=== PATIENT | female | born 1935 | race Hispanic/Latino ===

== ENCOUNTER 2017-07-29 21:19 | Inpatient (IN) | payer MEDICARE ==
[2017-07-30 00:30] VITALS: BMI 24.3
[2017-07-30] MEDS ORDERED: HYDROcodone/Acetaminophen 5/325 mg Tablet PO PRN ×2 (00:33)
[2017-07-30] MEDS ORDERED: Ondansetron ODT 4 MG TAB SL PRN (00:33)
[2017-07-30] MEDS ORDERED: Ondansetron HCl/PF 4 MG/2 ML Vial IVP PRN (00:33)
[2017-07-30] MEDS ORDERED: Acetaminophen 325 MG TAB PO PRN (00:33)
[2017-07-30] MEDS ORDERED: Dextrose 5% in Water 1,000 ML IV PRN (02:32)
[2017-07-30] MEDS ORDERED: Dextrose 50% Abboject 50 ML SYRINGE SLOW IVP PRN (02:32)
[2017-07-30] MEDS ORDERED: HumaLOG 300 UNITS/3 ML VIAL SC PRN (02:32)
[2017-07-30] MEDS: Sodium Chloride 0.9% 1,000 ML IV SCH ×3 (03:03→23:58)
--- NOTE | 2017-07-30 04:15 | HP ---
PRIMARY CARE PHYSICIAN: Dr. Galvez WAGE AND SALARY ADMINISTRATOR: Dr. Pedro CHIEF COMPLAINT: Bloody bowel movement. HISTORY OF PRESENT ILLNESS: A 81-year-old female with a history of hypertension , who presented with a chief complaint of blood in her bowel movements x3 earlier today at home and "several times" in the emergency department. Patient states that this is acute onset, never had any prior similar episodes. Denies any prior history of routine colonoscopy or stool evaluation by alternative means. No known history of colonic cancer in her family. Denies any personal history of hemorrhoids. REVIEW OF SYSTEMS: As per HPI. Constitutional: No recent weight changes. Denies any fevers or chills. HEENT: Denies any recent issues with lightheadedness, dizziness, changes in vision, new headaches. Respiratory: No new shortness of breath, no new cough. No recent upper respiratory infection. No sinus congestion, no postnasal drip. Cardiovascular: No chest pain, no chest pressure, no shortness of breath with exertion. Gastrointestinal: Bowel movement issues as above. No nausea, vomiting, or abdominal pain. Musculoskeletal: No new myalgias or arthralgias. PAST MEDICAL HISTORY: As per above. 1. Hypertension. 2. Diabetes. 3. Denies any prior intra-abdominal surgeries. HOME MEDICATIONS: As per EMR includes the following, montelukast 10 mg p.o. daily, lisinopril 10 mg p.o. b.i.d., fluticasone and salmeterol one inhalation b.i.d. Patient denies any recent changes to this regimen in the last 2 weeks. She states that she also takes vitamin B12, vitamin D3, and vitamin E over-the- counter as well. Denies any other herbal or supplemental use. ALLERGIES: No known drug allergies. FAMILY HISTORY: The patient denies any family history of gastrointestinal cancer. She states that her sister and one of her brothers has had recent GI issues and she thinks that her sister may have had a GI bleed recently as well. SOCIAL HISTORY: The patient is accompanied here today by her granddaughter who is with her in the room. The patient indicates that she wishes her granddaughter to be the medical decision maker if she is unable to make her own medical decisions. We discussed advanced care planning and code status. The patient states that all of her information is on file with her primary care provider to discuss the topic any further at this point in time. She is therefore presumed to be FULL CODE at this point in time. PHYSICAL EXAMINATION: VITAL SIGNS: Temperature 98.4, pulse of 89, blood pressure 131/70, respirations 16, satting 96% on room air. GENERAL: The patient is awake, alert, conversant, in no acute distress, oriented x3, appears to be a reasonable historian, provides history as above. HEENT: Normocephalic, atraumatic. Equal ocular motions are intact. Moist mucous membranes. No posterior oropharyngeal erythema or exudate. CARDIOVASCULAR: S1, S2. Pulses 2+ bilateral upper extremities, no pitting pedal edema. No murmurs, rubs, or gallops. RESPIRATORY: Reasonable air movement. No conversational dyspnea. No wheezes, rales, or rhonchi, otherwise clear to auscultation. ABDOMEN: Positive bowel sounds, soft, nontender to palpation. MUSCULOSKELETAL: Moving all 4 extremities, able to self-repositioning the bed without difficulty or assistance. LABORATORY DATA AND IMAGING: WBC 7.7, hemoglobin 11.4, hematocrit 35.8, platelets 298. PT 13.1, INR 1.0. Sodium 140, potassium 4.2, chloride 104, bicarbonate is 426, BUN is 18, creatinine 0.81, glucose 178, calcium 10.1, total bilirubin 0.2, AST 13, ALT 12, alkaline phosphatase 173, total serum protein 6.9, albumin 3.8, lipase 40. UA is significant for small ketones, moderate leukoesterase, and 11-20 wbc's. Stool occult blood is positive for fecal occult blood. ASSESSMENT AND PLAN: A 81-year-old female who presents with a chief complaint of blood in her stools. 1. Bloody stools concerning for possible lower gastrointestinal bleed. Discussed with the patient and her family at bedside. The patient will be kept n.p.o., IV fluids started. Serial H&Hs obtained. The patient currently states that she would wish to receive a blood transfusion if she should need blood transfusion. A goal of transfusion would be to maintain hemoglobin of greater than 7. Hold the patient's home aspirin. GI consultation has been obtained as well from the emergency department. 2. Home history of hypertension. Continue to closely monitor. 3. Diet: N.p.o. 4. Activity: Out of bed as tolerated. 5. DVT prophylaxis with sequentials. Discussed with the patient admission on an observation basis. Patient is presumed to be FULL CODE as per conversation noted above. Thank you for asking me care for the patient. Questions or concerns, contact me at [facility]. RENETTA
[2017-07-30 04:38] LABS: Anion Gap 5 mmol/L (10-20); BUN (Urea Nitrogen) 22 mg/dL (9.8-20.1); Calc. Creatinine Clearance 67 mL/min (70-130); Calcium 9.3 mg/dL (7.8-10.44); Carbon Dioxide 28 mmol/L (23-31); Chloride 107 mmol/L (98-107); Estimated GFR-MDRD 82; Glucose 133 mg/dL (83-110); Potassium 4.4 mmol/L (3.5-5.1); Sodium 136 mmol/L (136-145)
[2017-07-30 04:49] LABS: #Basophils 0.1 thou/uL (0.0-0.2); #Eosinphils 0.8 thou/uL (0.0-0.7); #Lymphocytes 1.6 thou/uL (1.20-3.40); #Monocytes 0.6 thou/uL (0.11-0.59); #Neutrophils 4.7 thou/uL (1.40-6.50); %Basophils 0.7 % (0.0-1.0); %Eosinophils 9.8 % (0.0-10.0); %Lymphocytes 20.3 % (21.0-51.0); %Monocytes 8.1 % (0.0-10.0); Hemoglobin 8.8 g/dL (12.0-16.0); Mean Corpuscular HGB CONC 33.4 g/dL (32.0-36.0); Mean Corpuscular Hemoglobin 29.9 pg (27.0-31.0); Mean Corpuscular Volume 89.7 fl (81.0-99.0); Platelet Count 268 thou/uL (130-400); RBC Distribution Width 12.3 % (11.5-14.5); Red Blood Cell (RBC) Count 2.94 mill/uL (4.20-5.40); White Blood Cell (WBC) Count 7.7 thou/uL (4.8-10.8)
[2017-07-30] MEDS: Mometasone/Formoterol 120 PUFF INHALER INH SCH ×2 (07:21→18:20)
[2017-07-30 08:48] LABS: #Eosinphils 0.3 thou/uL (0.0-0.7); #Lymphocytes 1.1 thou/uL (1.20-3.40); #Monocytes 0.4 thou/uL (0.11-0.59); #Neutrophils 5.3 thou/uL (1.40-6.50); %Basophils 0.5 % (0.0-1.0); %Lymphocytes 15.8 % (21.0-51.0); %Monocytes 5.3 % (0.0-10.0); %Neutrophils 74.3 % (42.0-75.0); Hemoglobin 8.5 g/dL (12.0-16.0); Mean Corpuscular HGB CONC 33.5 g/dL (32.0-36.0); Mean Corpuscular Volume 89.5 fl (81.0-99.0); Mean Platelet Volume 6.8 fL (7.4-10.4); Platelet Count 271 thou/uL (130-400); RBC Distribution Width 12.2 % (11.5-14.5); Red Blood Cell (RBC) Count 2.84 mill/uL (4.20-5.40); White Blood Cell (WBC) Count 7.1 thou/uL (4.8-10.8)
[2017-07-30] MEDS ORDERED: Non-Formulary Item 1 EACH (Fluticasone/Salmeterol [Advair Diskus 250/50] 1 INH) IH SCH (09:00)
[2017-07-30] MEDS: Pantoprazole 40 MG VIAL IVP SCH ×2 (09:00→21:51)
[2017-07-30] MEDS: Lisinopril 10 MG TAB PO SCH ×2 (09:11→21:51)
--- NOTE | 2017-07-30 13:34 | PDOC.EVN ---
Event Note - Event Note Event Note: Chart reviewed, pt seen. Family updated.
[2017-07-30 15:02] LABS: #Eosinphils 0.4 thou/uL (0.0-0.7); #Lymphocytes 1.6 thou/uL (1.20-3.40); #Monocytes 0.4 thou/uL (0.11-0.59); #Neutrophils 4.5 thou/uL (1.40-6.50); %Basophils 0.7 % (0.0-1.0); %Eosinophils 5.7 % (0.0-10.0); %Lymphocytes 23.3 % (21.0-51.0); %Monocytes 5.7 % (0.0-10.0); %Neutrophils 64.7 % (42.0-75.0); Hemoglobin 8.1 g/dL (12.0-16.0); Mean Corpuscular HGB CONC 32.8 g/dL (32.0-36.0); Mean Corpuscular Hemoglobin 29.5 pg (27.0-31.0); Mean Platelet Volume 6.8 fL (7.4-10.4); Platelet Count 243 thou/uL (130-400); RBC Distribution Width 12.3 % (11.5-14.5); Red Blood Cell (RBC) Count 2.76 mill/uL (4.20-5.40)
[2017-07-30] MEDS ORDERED: GoLYTELY 4,000 ml Bottle PO SCH (18:00)
--- NOTE | 2017-07-30 19:16 | CON ---
GASTROENTEROLOGY CONSULTATION NOTE DATE OF CONSULTATION: 07/30/2017 CHIEF COMPLAINT: Blood in the stool. HISTORY OF PRESENT ILLNESS: Ms. Encinas is a 81-year-old woman who developed bright red rectal bl eeding last night around 5:00 p.m. She had around 8 bloody stools between 5:00 p.m. and 4:00 a.m. S thaddeus then, she has had no further output. She has no abdominal pain associated with this. No nausea or vomiting, no diarrhea or constipation preceding this. PAST MEDICAL HISTORY: Hypertension and diabetes. PAST SURGICAL HISTORY: Negative. FAMILY HISTORY: Negative for GI malignancy. Her sister had a diverticular bleed. SOCIAL HISTORY: No alcohol, tobacco or drugs. MEDICATIONS PRIOR TO ADMISSION: Lisinopril, Advair and she takes aspirin 81 mg daily. Currently, in the hospital, she is on pantoprazole IV, montelukast, Dulera inhaler and insulin sliding scale. REVIEW OF SYSTEMS: Negative x10 systems reviewed except as stated in the history of present illness. PHYSICAL EXAMINATION: VITAL SIGNS: Temperature 98.7, blood pressure 99/59 and pulse 98. GENERAL: She is in no acute distress. She is alert and oriented x3. HEENT: Eyes have no scleral icterus. Oropharynx is clear, without lesions. NECK: No cervical or supraclavicular lymphadenopathy. LUNGS: Clear to auscultation bilaterally. HEART: Regular rate and rhythm. ABDOMEN: Soft, nontender and nondistended. Bowel sounds are present. EXTREMITIES: No lower extremity edema. LABORATORY DATA: White blood cell count 7.1 and hemoglobin is 8.5. Baseline hemoglobin back in [facility] was 12.2 and hemoglobin on presentation last night was 11.4. INR 1.0. Creatinine 0.69. On pre sentation, her bilirubin was 0.2, AST 13, ALT 12, alkaline phosphatase 173 and albumin 3.8. IMPRESSION: 1. Acute lower gastrointestinal bleed. Her last stool output was 4:00 this morning. She has no abd ominal pain with this. This is most likely a diverticular bleed. She has never had a prior colonosc opy. 2. Anemia of acute blood loss. RECOMMENDATIONS: Colonoscopy tomorrow.
[2017-07-30 20:41] LABS: #Basophils 0.1 thou/uL (0.0-0.2); #Eosinphils 0.6 thou/uL (0.0-0.7); #Lymphocytes 2.3 thou/uL (1.20-3.40); #Monocytes 0.6 thou/uL (0.11-0.59); #Neutrophils 4.9 thou/uL (1.40-6.50); %Basophils 0.6 % (0.0-1.0); %Eosinophils 7.6 % (0.0-10.0); %Lymphocytes 27.2 % (21.0-51.0); %Monocytes 7.4 % (0.0-10.0); %Neutrophils 57.3 % (42.0-75.0); Hemoglobin 9.2 g/dL (12.0-16.0); Mean Corpuscular HGB CONC 33.4 g/dL (32.0-36.0); Mean Corpuscular Hemoglobin 30.1 pg (27.0-31.0); Mean Platelet Volume 6.9 fL (7.4-10.4); Platelet Count 285 thou/uL (130-400); RBC Distribution Width 12.3 % (11.5-14.5); Red Blood Cell (RBC) Count 3.07 mill/uL (4.20-5.40); White Blood Cell (WBC) Count 8.6 thou/uL (4.8-10.8)
[2017-07-30] MEDS ORDERED: Ondansetron HCl/PF 4 MG/2 ML Vial SLOW IVP PRN (22:22)
[2017-07-31 02:45] LABS: #Eosinphils 0.4 thou/uL (0.0-0.7); #Lymphocytes 1.7 thou/uL (1.20-3.40); #Monocytes 0.4 thou/uL (0.11-0.59); #Neutrophils 4.5 thou/uL (1.40-6.50); %Basophils 0.6 % (0.0-1.0); %Eosinophils 5.4 % (0.0-10.0); %Lymphocytes 23.7 % (21.0-51.0); %Neutrophils 64.3 % (42.0-75.0); Hemoglobin 7.2 g/dL (12.0-16.0); Mean Corpuscular HGB CONC 33.3 g/dL (32.0-36.0); Mean Corpuscular Hemoglobin 29.7 pg (27.0-31.0); Mean Corpuscular Volume 89.3 fl (81.0-99.0); Mean Platelet Volume 6.6 fL (7.4-10.4); Platelet Count 217 thou/uL (130-400); RBC Distribution Width 12.2 % (11.5-14.5); Red Blood Cell (RBC) Count 2.41 mill/uL (4.20-5.40)
[2017-07-31 03:30] LABS: Anion Gap 7 mmol/L (10-20); BUN (Urea Nitrogen) 17 mg/dL (9.8-20.1); Calc. Creatinine Clearance 83 mL/min (70-130); Calcium 8.7 mg/dL (7.8-10.44); Carbon Dioxide 27 mmol/L (23-31); Chloride 111 mmol/L (98-107); Estimated GFR-MDRD Greater than 90; Glucose 112 mg/dL (83-110); Potassium 3.9 mmol/L (3.5-5.1); Sodium 141 mmol/L (136-145)
[2017-07-31] MEDS: Mometasone/Formoterol 120 PUFF INHALER INH SCH ×2 (07:38→17:54)
[2017-07-31] MEDS ORDERED: Ondansetron HCl/PF 4 MG/2 ML Vial IVP PRN (09:34)
[2017-07-31] MEDS ORDERED: Promethazine HCl 25 MG/ML VIAL IM PRN (09:34)
[2017-07-31] MEDS ORDERED: Promethazine HCl 25 MG/ML VIAL SLOW IVP PRN (09:34)
[2017-07-31] MEDS: Lisinopril 10 MG TAB PO SCH ×2 (10:34→20:10)
[2017-07-31] MEDS: Montelukast Sodium 10 mg Tablet PO SCH (10:35)
[2017-07-31] MEDS: Pantoprazole 40 MG VIAL IVP SCH ×2 (10:36→20:10)
[2017-07-31 10:42] LABS: #Eosinphils 0.5 thou/uL (0.0-0.7); #Lymphocytes 1.3 thou/uL (1.20-3.40); #Monocytes 0.5 thou/uL (0.11-0.59); #Neutrophils 3.9 thou/uL (1.40-6.50); %Basophils 0.5 % (0.0-1.0); %Lymphocytes 21.2 % (21.0-51.0); %Monocytes 8.4 % (0.0-10.0); %Neutrophils 61.9 % (42.0-75.0); Hemoglobin 7.9 g/dL (12.0-16.0); Mean Corpuscular HGB CONC 32.4 g/dL (32.0-36.0); Mean Corpuscular Hemoglobin 29.3 pg (27.0-31.0); Mean Corpuscular Volume 90.4 fl (81.0-99.0); Platelet Count 242 thou/uL (130-400); RBC Distribution Width 12.2 % (11.5-14.5); White Blood Cell (WBC) Count 6.3 thou/uL (4.8-10.8)
--- NOTE | 2017-07-31 11:44 | OP ---
DATE OF PROCEDURE: 07/31/2017 PROCEDURE: Colonoscopy with snare polypectomy. PREOPERATIVE DIAGNOSIS: Lower gastrointestinal bleed. OPERATIVE NOTE: Informed consent was obtained from the patient. She was sedated with total intraven ous anesthesia. Rectal exam was performed that was normal. The colonoscope was advanced to the term inal ileum without difficulty. The preparation quality was good. There was single aphthous ulcerati on in the terminal ileum which is unlikely of clinical significance. The ileocecal valve and appendi ceal orifice were clearly identified. There is moderately severe diverticulosis of the transverse, d escending and sigmoid colon. There are no signs of old blood or fresh bleeding in the colon today. Four small polyps measuring 4-5 mm were removed from the rectum by cold snare polypectomy. Retroflex ed views in the rectum revealed moderate internal hemorrhoids. IMPRESSION: 1. Single aphthous ulceration of the terminal ileum, unlikely of clinical significance. 2. Moderately severe diverticulosis of the transverse, descending, and sigmoid colon. 3. Four polyps measuring 4-5 mm removed from the rectum. 4. Moderate internal hemorrhoids. 5. There are no signs of recent bleeding currently. The source of her bleed was likely diverticular . RECOMMENDATIONS: 1. Await histopathology. 2. Repeat colonoscopy based on pathology results for surveillance. If 3 or more polyps are adenomas , then repeat colonoscopy in 3 years. If one or two of the polyps are adenomas, then repeat in 5 yea rs. If all four polyps are hyperplastic, then repeat colonoscopy in 10 years. 3. Advance diet. 4. Transfuse today 1 unit red blood cell.
--- NOTE | 2017-07-31 13:21 | PDOC.PN ---
- Subjective Encounter Start Date: 07/31/17 Encounter Start Time: 10:00 Pt seen for followup re: GI bleed. Denies chest pain or shortness of breath. Denies fevers or chills. - Objective Resuscitation Status: Resuscitation Status FULL:Full Resuscitation MAR Reviewed: Yes Vital Signs & Weight: Vital Signs (12 hours) Temp Pulse Resp BP BP Pulse Ox 07/31/17 11:47 97.7 F 80 16 111/50 L 96 07/31/17 10:34 131/72 07/31/17 10:10 98.4 F 91 20 95 07/31/17 04:00 98.4 F 91 20 108/55 L 93 L Weight Weight 141 lb 8 oz I&O: 07/30/17 07/31/17 08/01/17 06:59 06:59 06:59 Intake Total 350 6361 0 Balance 350 6361 0 Result Diagrams: 07/31/17 10:29 07/31/17 02:37 Additional Labs: Accuchecks 07/31/17 07/31/17 07/30/17 11:52 04:44 20:16 POC Glucose 85 112 H 104 07/30/17 16:19 POC Glucose 98 Phys Exam - Physical Examination Constitutional: NAD HEENT: PERRLA, moist MMs, sclera anicteric, oral pharynx no lesions Neck: no nodes, no JVD, supple, full ROM Respiratory: no wheezing, no rales, no rhonchi, clear to auscultation bilateral Cardiovascular: RRR, no rub Gastrointestinal: soft, non-tender, no distention, positive bowel sounds Neurological: moves all 4 limbs Psychiatric: normal affect, A&O x 3 Dx/Plan (1) GI bleed Code(s): K92.2 - GASTROINTESTINAL HEMORRHAGE, UNSPECIFIED Status: Acute Comment: Likely diverticular bleed. Appreciate GI service input. (2) Anemia associated with acute blood loss Code(s): D62 - ACUTE POSTHEMORRHAGIC ANEMIA Status: Acute Comment: pt to be transfused with pRBC. (3) Diverticular disease Code(s): K57.90 - DVRTCLOS OF INTEST, PART UNSP, W/O PERF OR ABSCESS W/O BLEED Status: Acute Comment: s/p scope, no active bleed at this time. (4) Colon polyps Code(s): K63.5 - POLYP OF COLON Status: Acute Comment: s/p biopsy. (5) DM2 (diabetes mellitus, type 2) Status: Chronic Comment: Continue accuchecks, insulin sliding scale. (6) HTN (hypertension) Code(s): I10 - ESSENTIAL (PRIMARY) HYPERTENSION Status: Chronic Comment: Monitor vital signs, titrate antihypertensives as needed. - Plan * . Review of Systems - Review of Systems Constitutional: negative: fever, chills, sweats, weakness, malaise Respiratory: negative: Cough, Shortness of Breath, Hemoptysis, SOB with Excertion, Pleuritic Pain, Wheezing Cardiovascular: negative: chest pain, palpitations, orthopnea, paroxysmal nocturnal dyspnea, edema, light headedness Gastrointestinal: Hematochezia. negative: Nausea, Vomiting, Abdominal Pain, Diarrhea, Constipation, Melena Genitourinary: negative: Dysuria, Frequency, Incontinence, Hematuria, Retention Skin: negative: Rash, Lesions, Kris, Bruising - Medications/Allergies Allergies/Adverse Reactions: Allergies Allergy/AdvReac Type Severity Reaction Status Date / Time No Known Drug Allergies Allergy Verified 07/30/17 00:48 Medications: Current Medications Dextrose/Water (Dextrose 50%) 25 gm SLOW IVP PRN PRN PRN Reason: Hypoglycemia Glucagon (Glucagon) 1 mg IM PRN PRN PRN Reason: Hypoglycemia Dextrose/Water (D5w) 1,000 mls @ 0 mls/hr IV .Q0M PRN; As Directed PRN Reason: Hypoglycemia Sodium Chloride (Normal Saline 0.9%) 1,000 mls @ 100 mls/hr IV .Q10H [facility] Last Admin: 07/30/17 23:58 Dose: 1,000 mls Insulin Human Lispro (Humalog) 0 units SC .MILD SLIDING SCALE PRN PRN Reason: Mild Correctional Scale Lisinopril (Zestril) 10 mg PO BID [facility] Last Admin: 07/31/17 10:34 Dose: 10 mg Mometasone Furoate/Formoterol Fumar (Dulera 200 Mcg/5 Mcg Inhaler) 2 puff INH BID-RT [facility] Last Admin: 07/31/17 07:38 Dose: Not Given Montelukast Sodium (Singulair) 10 mg PO DAILY [facility] Last Admin: 07/31/17 10:35 Dose: 10 mg Ondansetron HCl (Zofran) 4 mg SLOW IVP Q6H PRN PRN Reason: Nausea/Vomiting Pantoprazole Sodium (Protonix) 40 mg IVP BID [facility] Last Admin: 07/31/17 10:36 Dose: 40 mg Sodium Chloride (Flush - Normal Saline) 10 ml IVF Q12HR [facility] Last Admin: 07/31/17 10:29 Dose: Not Given Sodium Chloride (Flush - Normal Saline) 10 ml IVF PRN PRN PRN Reason: Saline Flush
[2017-07-31 15:11] LABS: #Basophils 0.1 thou/uL (0.0-0.2); #Eosinphils 0.5 thou/uL (0.0-0.7); #Lymphocytes 1.4 thou/uL (1.20-3.40); #Monocytes 0.5 thou/uL (0.11-0.59); #Neutrophils 4.3 thou/uL (1.40-6.50); %Lymphocytes 20.5 % (21.0-51.0); %Monocytes 7.3 % (0.0-10.0); %Neutrophils 63.2 % (42.0-75.0); Hemoglobin 9.2 g/dL (12.0-16.0); Mean Corpuscular HGB CONC 33.1 g/dL (32.0-36.0); Mean Corpuscular Hemoglobin 29.9 pg (27.0-31.0); Mean Corpuscular Volume 90.3 fl (81.0-99.0); Mean Platelet Volume 6.6 fL (7.4-10.4); Platelet Count 251 thou/uL (130-400); RBC Distribution Width 12.5 % (11.5-14.5); Red Blood Cell (RBC) Count 3.08 mill/uL (4.20-5.40); White Blood Cell (WBC) Count 6.8 thou/uL (4.8-10.8)
[2017-07-31] MEDS: Sodium Chloride 0.9% 1,000 ML IV SCH (16:13)
[2017-07-31] MEDS ORDERED: PROPOFOL 200 MG/20 ML VIAL ONE (16:42)
[2017-07-31 21:20] LABS: #Eosinphils 0.6 thou/uL (0.0-0.7); #Lymphocytes 1.4 thou/uL (1.20-3.40); #Monocytes 0.5 thou/uL (0.11-0.59); #Neutrophils 4.5 thou/uL (1.40-6.50); %Basophils 0.7 % (0.0-1.0); %Eosinophils 8.4 % (0.0-10.0); %Lymphocytes 20.1 % (21.0-51.0); %Monocytes 7.4 % (0.0-10.0); %Neutrophils 63.4 % (42.0-75.0); Hemoglobin 8.8 g/dL (12.0-16.0); Mean Corpuscular HGB CONC 33.6 g/dL (32.0-36.0); Mean Corpuscular Volume 89.4 fl (81.0-99.0); Mean Platelet Volume 6.6 fL (7.4-10.4); Platelet Count 220 thou/uL (130-400); RBC Distribution Width 12.1 % (11.5-14.5); Red Blood Cell (RBC) Count 2.93 mill/uL (4.20-5.40); White Blood Cell (WBC) Count 7.2 thou/uL (4.8-10.8)
[2017-08-01] MEDS: Sodium Chloride 0.9% 1,000 ML IV SCH ×2 (02:17→12:56)
[2017-08-01 05:04] LABS: Anion Gap 6 mmol/L (10-20); BUN (Urea Nitrogen) 6 mg/dL (9.8-20.1); Calc. Creatinine Clearance 80 mL/min (70-130); Carbon Dioxide 30 mmol/L (23-31); Chloride 107 mmol/L (98-107); Estimated GFR-MDRD Greater than 90; Glucose 94 mg/dL (83-110); Potassium 3.6 mmol/L (3.5-5.1); Sodium 139 mmol/L (136-145)
[2017-08-01] MEDS: Mometasone/Formoterol 120 PUFF INHALER INH SCH ×2 (07:32→18:07)
[2017-08-01] MEDS: Montelukast Sodium 10 mg Tablet PO SCH (09:55)
[2017-08-01] MEDS: Lisinopril 10 MG TAB PO SCH (09:55)
[2017-08-01 16:09] LABS: Hemoglobin 8.6 g/dL (12.0-16.0)
[2017-08-01 16:58] VITALS: BP 133/72; TEMP 97.8
--- NOTE | 2017-08-02 01:28 | DIS ---
DATE OF ADMISSION: 07/29/2017 DATE OF DISCHARGE: 08/01/2017 PRIMARY CARE PHYSICIAN: Lalita Galvez M.D. DISCHARGE DIAGNOSES: 1. Gastrointestinal bleed. 2. Diverticulosis. 3. Rectal polyps. 4. Moderate internal hemorrhoids. CONSULTATIONS DURING THIS HOSPITALIZATION: Gastroenterology, Dr. Pedro. CONDITION OF PATIENT ON THE DAY OF DISCHARGE: Stable. I assessed Ms. Encinas on the day of discharge. She denies any chest pain or shortness of breath. She denies any fevers or chills. She denies any nausea or vomiting. She denies any abdominal pain . Vital signs are stable. S1 and S2 are heard, regular. Lungs are clear to auscultation bilaterall y. HOSPITAL COURSE: Ms. Encinas is a pleasant 81-year-old lady who was admitted to [facility] on 07/30/2017 for lower GI bleed. She underwent colonoscopy by Gastroenterology ser vice on 07/31/2017. She had single aphthous ulceration of the terminal ileum, unlikely of clinical s ignificance, moderately severe diverticulosis of the transverse, descending, and sigmoid colon, 4 carmen yps measuring 4-5 mm removed from rectum, moderate internal hemorrhoids and no signs of recent bleedi ng. The source of her bleed was likely diverticular. Histopathology is pending at the time of disch arge. Her bleed resolved. She also received 1 unit of packed RBC. She is being discharged home in a stable condition. She is advised to follow up with Gastroenterology Service in 1-2 weeks for patho logy result. On the day of discharge, she has hemoglobin of 8.6. She has a creatinine of 0.58 and n ormal electrolytes on the day of discharge, Many thanks for allowing me to participate in your patient's care. Please feel free to contact me wi th any questions or concerns. DISCHARGE MEDICATIONS: Aspirin 81 mg daily, she has been advised to discuss with her primary care ph ysician if she needs to be on aspirin. Gastroenterology service is okay with her being on aspirin, b ut cautioned that it increases the risk of bleeding. Her other medications include Singulair 10 mg d aily, lisinopril 10 mg 2 times a day and Advair. DISCHARGE DESTINATION: Home. TOTAL AMOUNT OF TIME SPENT COORDINATING THIS DISCHARGE: 32 minutes.
== END 2017-08-01 18:39 | disposition home or self-care (01) | DRG 378 ==
LOC: ERS 21:19 → T4-B 23:00
PROVIDERS: ADMIT Internal Medicine; ATTEND Internal Medicine
PROC: 0DBP8ZX Excision of Rectum, Via Natural or Artificial Opening Endoscopic, Diagnostic (ICD-10-PCS; principal; 2017-07-31)
PROC: 30233N1 Transfusion of Nonautologous Red Blood Cells into Peripheral Vein, Percutaneous Approach (ICD-10-PCS; 2017-07-31)
DX: K57.31 Diverticulosis of large intestine without perforation or abscess with bleeding (principal); K63.3 Ulcer of intestine; E11.9 Type 2 diabetes mellitus without complications; D62 Acute posthemorrhagic anemia; K62.1 Rectal polyp; K64.8 Other hemorrhoids; I10 Essential (primary) hypertension; Z79.82 Long term (current) use of aspirin; Z79.4 Long term (current) use of insulin; Z79.899 Other long term (current) drug therapy
CPT/HCPCS: 36415; 36416; 36430; 80048; 85014; 85018; 85025; 86850; 86900; 86901; 88305; 94760; A4216; C9113; J2704; P9016

== ENCOUNTER 2018-01-04 09:40 | Outpatient (CLI) | payer MEDICARE | END 2018-01-04 09:41 | disposition home or self-care (01) | LOC: BICMAMMO 09:40 | PROVIDERS: ATTEND Family Medicine | DX: N63.22 Unspecified lump in the left breast, upper inner quadrant (principal); R92.1 Mammographic calcification found on diagnostic imaging of breast | CPT/HCPCS: 76642; 77066; G0279 ==

== ENCOUNTER → 2018-01-15 | Day surgery (SDC) | payer MEDICARE | LOC: BICULT 12:45 | PROVIDERS: ATTEND Family Medicine | PROC: 0HBU3ZX Excision of Left Breast, Percutaneous Approach, Diagnostic (ICD-10-PCS; principal; 2018-01-15) | DX: D05.92 Unspecified type of carcinoma in situ of left breast (principal); N64.1 Fat necrosis of breast | CPT/HCPCS: 19083; 88305; 88341; 88342 ==

== ENCOUNTER 2018-01-19 14:21 | Outpatient (CLI) | payer MEDICARE ==
[2018-01-19 14:50] LABS: #Basophils 0.1 thou/uL (0.0-0.2); #Eosinphils 0.6 thou/uL (0.0-0.7); #Lymphocytes 1.3 thou/uL (1.20-3.40); #Monocytes 0.4 thou/uL (0.11-0.59); #Neutrophils 4.6 thou/uL (1.40-6.50); %Basophils 0.8 % (0.0-1.0); %Lymphocytes 18.4 % (21.0-51.0); %Monocytes 5.7 % (0.0-10.0); Hemoglobin 12.9 g/dL (12.0-16.0); Mean Corpuscular HGB CONC 31.6 g/dL (32.0-36.0); Mean Corpuscular Hemoglobin 28.9 pg (27.0-31.0); Mean Corpuscular Volume 91.3 fL (78.0-98.0); Mean Platelet Volume 7.3 fL (7.4-10.4); Platelet Count 287 thou/uL (130-400); RBC Distribution Width 12.2 % (11.5-14.5); Red Blood Cell (RBC) Count 4.46 mill/uL (4.20-5.40)
--- NOTE | 2018-01-19 14:57 | RAD ---
PA AND LATERAL CHEST RADIOGRAPH: Date: 01-19-18 History: Pre-operative evaluation. Comparison: 04-06-14 FINDINGS: Cardiac silhouette and pulmonary vasculature are within normal limits. Mild chronic lung changes are seen. Lungs are hyperexpanded. There is symmetric apical pleural and parenchymal scarring. No focal a reas of consolidation or pleural fluid is seen. There has been no interval change when compared to th e prior exam. IMPRESSION: No acute cardiopulmonary process. POS: H
[2018-01-19 15:09] LABS: Anion Gap 10 mmol/L (10-20); BUN (Urea Nitrogen) 20 mg/dL (9.8-20.1); Calc. Creatinine Clearance 0 mL/min (70-130); Calcium 10.5 mg/dL (7.8-10.44); Carbon Dioxide 28 mmol/L (23-31); Chloride 105 mmol/L (98-107); Estimated GFR-MDRD 70; Glucose 132 mg/dL (83-110); Potassium 3.9 mmol/L (3.5-5.1); Sodium 139 mmol/L (136-145)
--- NOTE | 2018-01-20 22:44 | EKG ---
Test Reason : Blood Pressure : / mmHG Vent. Rate : 094 BPM Atrial Rate : 094 BPM P-R Int : 184 ms QRS Dur : 066 ms QT Int : 326 ms P-R-T Axes : 068 038 068 degrees QTc Int : 407 ms Normal sinus rhythm Possible Left atrial enlargement Possible Anterior infarct , age undetermined Abnormal ECG No previous ECGs available Confirmed by DR. Fran MARROQUIN MD ([id number]) on 01/20/2018 10:44:14 PM Referred By: KATHRYN Confirmed By:DR. Fran MARROQUIN MD
== END 2018-01-19 14:22 | disposition home or self-care (01) ==
LOC: LABBT 14:21
PROVIDERS: ATTEND Specialist
DX: Z01.818 Encounter for other preprocedural examination (principal); D05.12 Intraductal carcinoma in situ of left breast
CPT/HCPCS: 71046; 80048; 85025; 93005; 93010

== ENCOUNTER 2018-01-25 07:00 | Day surgery (SDC) | payer MEDICARE ==
[2018-01-19 15:01] VITALS: BMI 24.7
[2018-01-25] MEDS ORDERED: CEFAZOLIN/Water 2 GM/20 ML SYRINGE ONE (12:20)
[2018-01-25] MEDS ORDERED: Ketorolac Tromethamine 30 MG/ML VIAL ONE (12:21)
[2018-01-25] MEDS ORDERED: Fentanyl 100 MCG/2 ML VIAL ONE (12:27)
[2018-01-25] MEDS ORDERED: Isosulfan Blue 50 MG/5 ML VIAL ONE (12:35)
[2018-01-25] MEDS ORDERED: Bupivacaine/Epinephrine 0.25% 30 ML VIAL ONE ×2 (12:35→14:01)
[2018-01-25] MEDS ORDERED: Lidocaine 1% PF 5 ML VIAL ONE (13:29)
[2018-01-25] MEDS ORDERED: Dexamethasone 20 MG/5 ML VIAL ONE (13:29)
[2018-01-25] MEDS ORDERED: ePHEDrine/0.9% NaCl/PF SYRINGE 50 mg/10 ml ONE (13:29)
[2018-01-25] MEDS ORDERED: PROPOFOL 200 MG/20 ML VIAL ONE (13:29)
[2018-01-25] MEDS ORDERED: PHENYLEPHRINE-NS 100 MCG/ML 10 ML SYRINGE ONE (13:29)
--- NOTE | 2018-01-25 15:22 | MMO ---
LEFT BREAST NEEDLE LOCALIZATION WITH MAMMOGRAPHIC GUIDANCE: HISTORY: Left breast cancer. COMPARISON: 01/15/2018. FINDINGS: Successful left breast needle localization for a grouping of calcifications in the inner upper left b reast. This grouping of calcifications is separate from the irregular mass with associated calcifica tions and biopsy clip. TECHNIQUE: Consent was obtained to perform a needle localization of a 2nd grouping of calcifications which have not been biopsied in the past. Left breast was compressed in the mediolateral orientation. Calcif ications were identified. The skin was prepped and draped in a sterile fashion. 1% Lidocaine, buffe red with sodium bicarbonate, was used for local anesthesia. Under mammographic guidance, a 5 cm Home r needle and wire were advanced into the left breast via a mediolateral approach. Needle/wire placem ent was confirmed with respect to the calcifications in the CC projection. The wire was deployed. P ost wire deployment image was obtained. The wire and needle were secured to the patient. The patien t tolerated the procedure well. No immediate or postprocedure complication. IMPRESSION: Successful mammographic-guided needle localization of calcifications in the left breast which have no t undergone previous biopsy. Back to report at bottom and put: SURGICAL SPECIMEN: A single surgical specimen is submitted for interpretation. The mammographically performed [place] nee dle localization wire is present as is a 2nd wire that was placed by the surgeon under sonographic gu idance in the OR. Both groupings of calcifications are present. Surgical clip is noted. Findings w ere conveyed to the OR on 01/25/2018 at the time the surgical specimen was presented. CODE CR POS: TEJ
[2018-01-25] MEDS ORDERED: HYDROcodone/Acetaminophen 5/325 mg Tablet ONE ×2 (16:12→16:49)
--- NOTE | 2018-01-25 17:10 | NM ---
NUCLEAR MEDICINE LYMPHOSCINTIGRAPHY: HISTORY: Left breast cancer. COMPARISON: None. TECHNIQUE: The patient was administered a total of 436 mCi of Technetium 99m filtered sulfur colloid subcutaneou sly at the 12, 3, 6, and 9 periareolar positions of the left breast. FINDINGS: After 3 hours of imaging, there is no evidence of uptake in the intramammary lymph node or axillary l ymph node to suggest a sentinel lymph node. IMPRESSION: No scintigraphic evidence of sentinel lymph node. POS: TEJ
--- NOTE | 2018-01-26 08:38 | OP ---
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 There is additionally an adjacent area of calcifications abutting the lesion that has been b iopsied. 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 There is additionally an adjacent area of calcifications abutting the lesion that has been biopsied. OPERATION PERFORMED: Mammographic needle localization of the posterior group of calcifications, intr aoperative ultrasound-guided needle localization of the mass with a larger group of calcifications, a needle-localized lumpectomy of both areas contiguously in the upper inner quadrant of the left breas t, left axillary sentinel lymph node biopsy. INDICATIONS: The patient is an 82-year-old white female. She had recent mammography revealing a den se area of clustered microcalcifications in the upper inner left breast. There is a smaller area of calcifications posterior and medial to this larger group again. The larger area was biopsied and fin dings were consistent with DCIS. She is taken to the operating room at this time for excision of bot h areas of calcifications as well as sentinel lymph node biopsy. The small area of calcifications wa s mammographically needle-localized, as I cannot clearly see this with the ultrasound. DESCRIPTION OF OPERATION: Informed consent was obtained. The patient was taken to the operating melissa m where general anesthesia was obtained with the patient in supine position. Left breast including t he localizing needle was prepped with ChloraPrep and draped in sterile fashion to include the axilla. The left breast was infiltrated with 3 mL of Lymphazurin and the breast was massaged for 5 minutes. Attention was turned first to the axilla. Local anesthetic was infiltrated and transverse axillary incision was created. Dissection was carried through skin and subcutaneous tissue. I was able to u tilize the [place] to identify a dominant node of radioactivity. This clearly was blue stained as w ell. This was dissected circumferentially and removed intact. All investing lymphatics were divided between clamps and 3-0 silk ties. I was able to trace the blue dye, although there was no additiona l radioactivity to a second node as well. This was also dissected circumferentially and removed in t he same fashion. Further examination within the axilla revealed no evidence of radioactivity blue dye or palpable abno rmality. The left axilla was closed in layers with 3-0 and 4-0 Monocryl and additional local anesthe tic was infiltrated during closure. Attention was then turned to the breast. I utilized the ultrasound to clearly shauna the larger hypoec hoic lesion with calcifications in the breast. I also marked the area of the calcifications relative to the localizing needle. Using these two areas on the skin, I marked semi-oblique incision in the upper inner quadrant of the left breast. Local anesthetic was infiltrated. A skin incision was crea weston. Not mentioned above, is that I placed a localizing needle in a medial to lateral fashion through the dominant mass, which should also contain the localizing clip. Flaps were raised inferiorly and superiorly. Dissection was carried down to the mammographically vahid dominique needle. This was a 5 cm needle. I identified the needle at the point that the end of the tissue 4 cm from the tip of the needle. The needle was removed and the wire was replaced within the incisi on. I then performed a careful dissection around both areas attempting to remove the tissue around b oth localizing needles together. The specimen was fully dissected and removed and passed off the fie ld. It was oriented for location with sutures. Specimen mammography showed that both areas were rem aylin successfully. Meticulous hemostasis obtained with electrocautery. The wound was irrigated and all irrigant was asp irated. The wound was carefully closed in layers with 3-0 and 4-0 Monocryl suture. [address] was [address] aced externally. Dermabond was also placed over the axillary incision. There were no complications. The patient tolerated the procedure well and was taken to recovery in stable condition.
== END 2018-01-25 17:05 | disposition home or self-care (01) ==
LOC: SDC 07:00
PROVIDERS: ATTEND Specialist
PROC: 0HBU0ZZ Excision of Left Breast, Open Approach (ICD-10-PCS; principal; 2018-01-25)
PROC: 07B60ZX Excision of Left Axillary Lymphatic, Open Approach, Diagnostic (ICD-10-PCS; 2018-01-25)
DX: C50.212 Malignant neoplasm of upper-inner quadrant of left female breast (principal); J45.909 Unspecified asthma, uncomplicated; Z79.82 Long term (current) use of aspirin; Z79.899 Other long term (current) drug therapy; Z91.038 Other insect allergy status; Z91.040 Latex allergy status; Z17.1 Estrogen receptor negative status [ER-]
CPT/HCPCS: 19281; 19301; 38525; 38900; 76098; 78195; 88305; 88307; 88333; 88334; 88341; 88342; A9541; Q9968; J0131; J1100; J1885; J2001; J2704; J3010

== ENCOUNTER 2018-02-06 08:52 | Day surgery (SDC) | payer MEDICARE ==
[2018-02-02 13:37] VITALS: BMI 24.3
[2018-02-06] MEDS ORDERED: CEFAZOLIN/Water 2 GM/20 ML SYRINGE ONE (09:18)
[2018-02-06] MEDS ORDERED: Ketorolac Tromethamine 30 MG/ML VIAL ONE (09:19)
[2018-02-06] MEDS ORDERED: Midazolam HCl 2 mg/2 ml Vial ONE (09:52)
[2018-02-06] MEDS ORDERED: Bupivacaine/Epinephrine 0.25% 30 ML VIAL ONE (10:54)
[2018-02-06] MEDS ORDERED: HYDROmorphone 2 MG/ML VIAL ONE (11:02)
[2018-02-06] MEDS ORDERED: Fentanyl 100 MCG/2 ML VIAL ONE (11:02)
[2018-02-06] MEDS ORDERED: Promethazine HCl 25 MG/ML VIAL ONE (13:07)
[2018-02-06] MEDS ORDERED: Lidocaine 1% PF 5 ML VIAL ONE (16:58)
[2018-02-06] MEDS ORDERED: Ondansetron HCl/PF 4 MG/2 ML Vial ONE (16:58)
[2018-02-06] MEDS ORDERED: ePHEDrine/0.9% NaCl/PF SYRINGE 50 mg/10 ml ONE (16:58)
[2018-02-06] MEDS ORDERED: PHENYLEPHRINE-NS 100 MCG/ML 10 ML SYRINGE ONE (16:58)
[2018-02-06] MEDS ORDERED: PROPOFOL 200 MG/20 ML VIAL ONE (16:58)
--- NOTE | 2018-02-07 11:58 | OP ---
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 POSTOPERATIVE DIAGNOSES: Left breast lobular carcinoma in situ and invasive lobular carcinoma with p ositive margins from prior lumpectomy. OPERATION PERFORMED: Reexcision of left breast lumpectomy. SURGEON: Yayo Vargas M.D. ANESTHESIA: General endotracheal. INDICATIONS: The patient is an 82-year-old female. She had undergone surgery to remove an area of c alcifications within the upper inner quadrant of left breast. She was found to have a fairly dense a octavio of lobular carcinoma in situ with a few areas of invasive lobular carcinoma. Unfortunately, the margins that appeared to be positive, both on the medial and lateral aspect. She is returned to the operating room at this time for reexcision of the medial and lateral margins. DESCRIPTION OF OPERATION: Informed consent was obtained. The patient taken to the operating room wh ere general anesthesia obtained with the patient in supine position. The left breast was prepped wit h ChloraPrep, draped in sterile fashion. Local anesthetic was infiltrated using 0.25% Marcaine with epinephrine. Prior incision was reopened and dissection was carried through the breast down to the b iopsy cavity. The cavity contents were aspirated. I turned my attention initially to the medial margin. I removed the entire medial margin with the margin as it wrapped around to the superior and inferior aspect an d carried down onto the posterior aspect of the biopsy cavity. This was removed as an intact segment that was about 4 mm in thickness. It was tagged with sutures for orientation and passed off the fie ld. A similar procedure was then performed on the lateral aspect of the breast, again removing it intact a segment of tissue that encompassed the entire lateral margin as well as part of the anterior part o f the superior, inferior and posterior margins. After both margins were passed off the field, meticulous hemostasis obtained with electrocautery. Th e wound was irrigated. It was then closed in layers with 3-0 and 4-0 Monocryl. Dermabond was placed externally. There were no complications. The patient tolerated the procedure well and was taken to recovery room in stable condition.
== END 2018-02-06 16:35 | disposition home or self-care (01) ==
LOC: SDC 08:52
PROVIDERS: ATTEND Specialist
PROC: 0HBU0ZZ Excision of Left Breast, Open Approach (ICD-10-PCS; principal; 2018-02-06)
DX: D05.02 Lobular carcinoma in situ of left breast (principal); J45.909 Unspecified asthma, uncomplicated; Z79.82 Long term (current) use of aspirin; Z79.899 Other long term (current) drug therapy; Z91.040 Latex allergy status; Z91.038 Other insect allergy status; Z98.890 Other specified postprocedural states
CPT/HCPCS: 88307; 96374; J0131; J1170; J1885; J2001; J2250; J2405; J2550; J2704; J3010

== ENCOUNTER 2019-02-12 09:43 | Outpatient (CLI) | payer MEDICARE ==
--- NOTE | 2019-02-12 10:47 | MMO ---
Bilateral MAMMO Bilat Diag [facility]. CLINICAL HISTORY: Patient is 83 years old and is seen for diagnostic exam. The patient has no family history of breast cancer. The patient has a history of malignant (generic) in the left breast in 2018. The patient has a history of left Ultrasound Guided Core Biopsy in 2018 - malignant and left Lumpectomy in 2018 - malignant. VIEWS: The views performed were: bilateral craniocaudal with tomosynthesis; bilateral mediolateral oblique with tomosynthesis; and bilateral mediolateral with tomosynthesis. FILMS COMPARED: The present examination has been compared to a prior imaging study performed at [facility] on 01/04/2018. This study has been interpreted with the assistance of computer-aided detection. MAMMOGRAM FINDINGS: The breasts are heterogeneously dense, which could obscure a lesion on mammography. Finding 1: There are new post operative changes seen in the left breast. Finding 2: There are stable benign appearing calcifications seen in both breasts. There are also vascular calcifications. There are no suspicious masses, suspicious calcifications, or new areas of architectural distortion. IMPRESSION: THERE IS NO MAMMOGRAPHIC EVIDENCE OF MALIGNANCY. A ROUTINE FOLLOW-UP MAMMOGRAM IN 1 YEAR IS RECOMMENDED. THE RESULTS OF THIS EXAM WERE SENT TO THE PATIENT. ACR BI-RADS Category 2 - Benign finding MAMMOGRAPHY NOTE: 1. A negative mammogram report should not delay a biopsy if a dominant of clinically suspicious mass is present. 2. Approximately 10% to 15% of breast cancers are not detected by mammography. 3. Adenosis and dense breasts may obscure an underlying neoplasm. Reported by: RADHA GASPAR MD Electonically Signed: [id number]
== END 2019-02-12 09:44 | disposition home or self-care (01) ==
LOC: BICMAMMO 09:43
PROVIDERS: ATTEND Specialist
DX: Z08 Encounter for follow-up examination after completed treatment for malignant neoplasm (principal); Z86.000 Personal history of in-situ neoplasm of breast; Z98.890 Other specified postprocedural states
CPT/HCPCS: 77066; G0279

== ENCOUNTER 2020-02-13 08:42 | Outpatient (CLI) | payer MEDICARE ==
--- NOTE | 2020-02-13 09:23 | MMO ---
Bilateral MAMMO Bilat Diag [facility]. CLINICAL HISTORY: Patient is 84 years old and is seen for screening. The patient has no family history of breast cancer. The patient has a history of malignant (generic) in the left breast in 2018. The patient has a history of left Ultrasound Guided Core Biopsy in 2018 - malignant and left Lumpectomy in 2018 - malignant. VIEWS: The views performed were: bilateral craniocaudal with tomosynthesis; bilateral mediolateral oblique with tomosynthesis; and bilateral mediolateral with tomosynthesis. FILMS COMPARED: The present examination has been compared to prior imaging studies performed at [facility] on 01/04/2018 and 02/12/2019. This study has been interpreted with the assistance of computer-aided detection. MAMMOGRAM FINDINGS: The breasts are heterogeneously dense, which could obscure a lesion on mammography. Finding 1: There are stable post operative changes seen in the left breast. Finding 2: There are stable benign appearing calcifications seen in both breasts. There are also vascular calcifications. There are no suspicious masses, suspicious calcifications, or new areas of architectural distortion. IMPRESSION: THERE IS NO MAMMOGRAPHIC EVIDENCE OF MALIGNANCY. A ROUTINE FOLLOW-UP MAMMOGRAM IN 1 YEAR IS RECOMMENDED. THE RESULTS OF THIS EXAM WERE SENT TO THE PATIENT. ACR BI-RADS Category 2 - Benign finding MAMMOGRAPHY NOTE: 1. A negative mammogram report should not delay a biopsy if a dominant of clinically suspicious mass is present. 2. Approximately 10% to 15% of breast cancers are not detected by mammography. 3. Adenosis and dense breasts may obscure an underlying neoplasm. Reported by: RADHA GASPAR MD Electonically Signed: [id number]
== END 2020-02-13 08:43 | disposition home or self-care (01) ==
LOC: BICMAMMO 08:42
PROVIDERS: ATTEND Specialist
DX: Z08 Encounter for follow-up examination after completed treatment for malignant neoplasm (principal); Z85.3 Personal history of malignant neoplasm of breast
CPT/HCPCS: 77066; G0279

== ENCOUNTER 2021-02-15 08:05 | Outpatient (CLI) | payer MEDICARE | END 2021-02-15 08:06 | disposition home or self-care (01) | LOC: BICMAMMO 08:05 | PROVIDERS: ATTEND Specialist | DX: Z08 Encounter for follow-up examination after completed treatment for malignant neoplasm (principal); Z85.3 Personal history of malignant neoplasm of breast | CPT/HCPCS: 77066; G0279 ==

== ENCOUNTER 2021-08-05 10:50 | Day surgery (SDC) | payer MEDICARE ==
[2021-08-02 12:48] VITALS: BMI 23.1
[2021-08-05] MEDS ORDERED: Bacitracin Zinc Ointment 30 gm TUBE ONE (13:21)
[2021-08-05] MEDS ORDERED: Lidocaine 1% w/Epinephrine 1:100K 20 ML VIAL ONE ×2 (13:21→15:07)
[2021-08-05] MEDS ORDERED: Phenylephrine 10 MG/ML VIAL ONE (13:51)
[2021-08-05] MEDS ORDERED: Fentanyl 100 MCG/2 ML VIAL ONE ×2 (13:51→17:00)
[2021-08-05] MEDS ORDERED: Dexamethasone 20 MG/5 ML VIAL ONE (15:40)
[2021-08-05] MEDS ORDERED: Ondansetron PF 4 MG/2 ML Vial ONE (15:40)
[2021-08-05] MEDS ORDERED: Rocuronium Bromide 10 MG/ML (10ML VIAL) ONE (15:40)
[2021-08-05] MEDS ORDERED: PROPOFOL 200 MG/20 ML VIAL ONE (15:40)
[2021-08-05] MEDS ORDERED: Lidocaine 1% PF 5 ML VIAL ONE (15:40)
== END 2021-08-05 19:23 | disposition home or self-care (01) ==
LOC: SDC 10:50
PROVIDERS: ATTEND Specialist
PROC: 0GTP0ZZ Resection of Left Inferior Parathyroid Gland, Open Approach (ICD-10-PCS; principal; 2021-08-05)
DX: D35.1 Benign neoplasm of parathyroid gland (principal); E21.0 Primary hyperparathyroidism; Z92.3 Personal history of irradiation; Z79.82 Long term (current) use of aspirin; Z79.899 Other long term (current) drug therapy; Z91.040 Latex allergy status
CPT/HCPCS: 60500; 88334; C1776; 88305; 88331; J1100; J2370; J2405; J2704; J3010

== ENCOUNTER 2022-02-16 09:03 | Outpatient (CLI) | payer MEDICARE | END 2022-02-16 09:04 | disposition home or self-care (01) | LOC: BICMAMMO 09:03 | PROVIDERS: ATTEND Specialist | DX: Z12.31 Encounter for screening mammogram for malignant neoplasm of breast (principal); Z85.3 Personal history of malignant neoplasm of breast; Z98.890 Other specified postprocedural states | CPT/HCPCS: 77063; 77067 ==